=== PATIENT | male | born 1985 | race Caucasian/White ===

== ENCOUNTER 2019-02-07 01:48 | Emergency (ER) | payer BC, MEDICAID ==
[~2019-02-07] VITALS: Ht 177.8 cm; Wt 77.1 kg
[2019-02-07] MEDS ORDERED: ONDANSETRON ODT4 MG BC (02:27)
[2019-02-07] MEDS ORDERED: LORazepam 1mg tab ORAL ONE (02:30)
[2019-02-07 02:46] VITALS: BP 146/89
--- NOTE | 2019-02-07 02:50 | NUR ---
ED Nurse Note: Patient walked in to ER due to fentanyl withdrawal, nausea. Per patient he used sinthetic fentanyl today and started feel nauseated. AAO x 4, VSS at this time, skin is dry, warm to touch.
[2019-02-07 02:53] VITALS: BP 146/89
--- NOTE | 2019-02-07 02:53 | NUR ---
ED Nurse Note: Pt cleared by health care Provider for discharge. DC instructions/prescription was given and explained to pt and verbalized understanding of teachings. All medical deviecs such as ID band removed. Pt is AAO x4, ambulatory and left with all personal belongings.
--- NOTE | 2019-02-07 07:10 | Emergency Room Report ---
History of Present Illness General Chief Complaint: Overdose Source: Patient Present Illness HPI 33-year-old male presents ED for evaluation. States that he is taking synthetic opiates and ran out and now feels like he is withdrawing. Feels very anxious.. Notes some nausea, denies vomiting. Denies chest pain or shortness of breath. Denies SI or HI. Denies hearing voices. No other aggravating relieving factors. Denies any other associated symptoms Allergies: Coded Allergies: No Known Allergies (Unverified , 02/07/19) Patient History Past Medical History: none Past Surgical History: none Pertinent Family History: none Social History: Denies: smoking, alcohol use, drug use Immunizations: UTD Reviewed Nursing Documentation: PMH: Agreed; PSxH: Agreed Nursing Documentation-PMH History Of Psychiatric Problem: Yes - anxiety, subtance abuse Review of Systems All Other Systems: negative except mentioned in HPI Physical Exam Vital Signs Date Time Temp Pulse Resp B/P (MAP) Pulse Ox O2 Delivery O2 Flow Rate FiO2 02/07/19 02:02 97.5 81 18 146/89 (108) 97 Room Air Sp02 EP Interpretation: reviewed, normal General Appearance: no apparent distress, alert, GCS 15, non-toxic Head: normocephalic Eyes: bilateral eye normal inspection, bilateral eye PERRL ENT: normal ENT inspection Neck: normal inspection Respiratory: normal inspection Cardiovascular #1: normal inspection Gastrointestinal: normal inspection Rectal: deferred Genitourinary: no CVA tenderness Musculoskeletal: normal inspection Neurologic: alert, oriented x3, responsive, motor strength/tone normal, sensory intact, speech normal Psychiatric: anxious Skin: normal inspection Lymphatic: normal inspection Medical Decision Making Diagnostic Impression: Primary Impression: Opioid withdrawal ER Course Hospital Course 33-year-old male presents ED for evaluation for withdrawal from opiates. Differential diagnoses include: Psychosis, EtOH, drug abuse Clinical course patient placed on stretcher. On ekg monitor tech. After initial history, exam reveals male in no acute distress. When anxious. Physical exam otherwise unremarkable. Vitals stable. patient is requesting morphine here to help with his symptoms. I declined providing him with any opiate medications. Given 1 dose of p.o. Ativan. Safe for discharge with close outpatient follow-up. States that he has Suboxone at home. I will provide referrals i. I feel this is a highly complex case requiring extensive working including EKG/Rhythm strip, Xray/CT/US, Blood/urine lab work, repeat exams while in ED, and administration of strong opiates/narcotics for pain control, admission to hospital or close patient follow up. Diagnosis - opiate withdrawal Stable and discharged to home. Followup with PMD. Return to ED if symptoms recur or worsen Last Vital Signs Date Time Temp Pulse Resp B/P (MAP) Pulse Ox O2 Delivery O2 Flow Rate FiO2 02/07/19 02:53 97.5 18 146/89 97 Room Air 02/07/19 02:46 81 Status: improved Disposition: HOME, SELF-CARE Condition: Stable Scripts Ondansetron Odt* (ZOFRAN ODT*) 4 Mg Tab.rapdis 4 MG BC EVERY 6 HOURS PRN for Nausea & Vomiting, #20 TAB 0 Refills Prov: Raymond Doan MD 02/07/19 Referrals: NON PHYSICIAN (PCP) [facility] Patient Instructions: Finding Treatment for Addiction Raymond Doan MD Feb 07, 2019 07:10
== END 2019-02-07 03:00 | disposition home or self-care (01) ==
LOC: EMR 03:00
DX: F11.23 Opioid dependence with withdrawal (principal); F41.9 Anxiety disorder, unspecified
CPT/HCPCS: 99282